=== PATIENT | female | born 1935 | race African-American/Black ===

== ENCOUNTER → 2016-05-02 | Outpatient (CLI) | payer OTHER, MEDICARE ==
[2016-05-02 08:31] LABS: CREATININE 1.1 mg/dL (0.6-1.3)
== END ==
LOC: CAT 07:59
PROVIDERS: Internal Medicine
DX: R10.11 Right upper quadrant pain (principal)

== ENCOUNTER → 2016-05-27 | Outpatient (CLI) | payer OTHER, MEDICARE | LOC: CAT 07:48 → PUL 08:41 | DX: K59.00 Constipation, unspecified (principal); J35.8 Other chronic diseases of tonsils and adenoids; M16.0 Bilateral primary osteoarthritis of hip; R10.9 Unspecified abdominal pain ==

== ENCOUNTER → 2016-06-22 | Outpatient (CLI) | payer OTHER, MEDICARE | LOC: ULTRA 07:17 | DX: N94.9 Unspecified condition associated with female genital organs and menstrual cycle (principal); N83.209 Unspecified ovarian cyst, unspecified side ==